=== PATIENT | female | born 1945 | race Caucasian/White ===

== ENCOUNTER 2020-07-28 14:17 | Outpatient (REF) | payer MEDICARE, SELFPAY | END 2020-07-28 14:18 | disposition home or self-care (01) | LOC: HO.LAB 14:17 | PROVIDERS: PCP Internal Medicine; Visit Provider Internal Medicine Cardiovascular Disease | DX: I47.1 Supraventricular tachycardia (principal); I10 Essential (primary) hypertension; I49.1 Atrial premature depolarization; Z79.899 Other long term (current) drug therapy; Z82.49 Family history of ischemic heart disease and other diseases of the circulatory system | CPT/HCPCS: 93005; 99202 ==

== ENCOUNTER 2020-08-06 09:54 | Outpatient (REF) | payer MEDICARE, SELFPAY ==
[2020-08-07 11:58] LABS: CRP High Sensitivity 0.4 mg/L
== END 2020-08-06 09:55 | disposition home or self-care (01) ==
LOC: HO.WFDLDS 09:54
PROVIDERS: Visit Provider Internal Medicine Cardiovascular Disease
DX: I10 Essential (primary) hypertension (principal)
CPT/HCPCS: 36415; 86141

== ENCOUNTER 2021-01-01 11:54 | Outpatient (REF) | payer MEDICARE, SELFPAY ==
[2021-01-01 14:40] LABS: Anion Gap 12 (12-20); Blood Urea Nitrogen 13 mg/dL (9-16); Calcium 9.6 mg/dL (8.4-10.2); Carbon Dioxide 26 mmol/L (22-29); Chloride 107 mmol/L (96-108); Estimated Glomerular Filt Rate > 60; Glucose Random 87 mg/dL (60-115); Potassium 4.5 mmol/L (3.3-5.1); Sodium 140 mmol/L (135-145)
== END 2021-01-01 11:55 | disposition home or self-care (01) ==
LOC: HO.WFDLDS 11:54
PROVIDERS: PCP Internal Medicine; Visit Provider Internal Medicine
DX: I10 Essential (primary) hypertension (principal); T61.91XA Toxic effect of unspecified seafood, accidental (unintentional), initial encounter
CPT/HCPCS: 36415; 80048; 86003

== ENCOUNTER 2021-01-07 07:44 | Outpatient (REF) | payer MEDICARE, SELFPAY ==
--- NOTE | ~2021-01-07 | CT_ITS ---
EXAMINATION: CT ANGIOGRAM ABDOMEN CLINICAL INFORMATION: Splenic artery aneurysm. COMPARISON: None TECHNIQUE: Multiple axial images were obtained through the abdomen following the administration of 80 mL Omnipaque 350 intravenous contrast. Images were evaluated on independent dedicated 3-D workstation and 3-D images were reconstructed with concurrent radiologist supervision and subsequently interpreted. This CT examination was performed using dose optimization techniques as appropriate, variously including the following: *Automated exposure control *Adjustment of mA and/or kV according to patient size (this includes techniques or standardized protocols for targeted exams where dose is matched to indication/reason for exam; i.e. extremities or head) *Use of iterative reconstruction technique DLP: 260 mGy-cm VASCULAR: Abdominal aorta: Normal caliber widely patent. Iliac arteries: The common iliac arteries are normal in caliber and widely patent. The visualized portion of the internal and external iliac arteries are normal in caliber and widely patent. Mesenteric arteries: The celiac artery is widely patent and trifurcates normally. The splenic artery is tortuous but normal in caliber and widely patent. Adjacent to the splenic hilum is a 1.4 cm rim calcified splenic artery aneurysm (series 5 image 15 and series 6 image 42). The superior mesenteric and inferior mesenteric arteries are patent and branch appropriately. Renal arteries: The bilateral renal arteries are widely patent. NONVASCULAR: Professor Of Music: Dextroscoliosis of the thoracic spine as well as levoscoliosis of the lumbar spine. Lung Bases: Minimal bibasilar atelectasis. There is a small right-sided Bochdalek hernia which transmits fat. Liver, Gallbladder, Biliary Tree: Normal-sized liver. No biliary ductal dilatation. Along the peripheral right lobe, segment 6 posteriorly, is a punctate coarse calcification (series 8 image 261). The gallbladder is unremarkable with no evidence of radiopaque gallstones, gallbladder wall thickening, or pericholecystic inflammatory changes. Pancreas: Unremarkable. Spleen: Normal in size. There is a 5 mm punctate calcification within the spleen consistent with prior granulomatous disease. Adrenal Glands: Unremarkable. Kidneys and Ureters: The kidneys are normal in size, shape, and attenuation. No hydronephrosis or hydroureter or calculi seen. No perinephric stranding. Gastrointestinal Tract: The small and large bowel are unremarkable. The appendix is unremarkable. Abdominal Wall: Tiny fat-containing umbilical hernia. Dense bilateral breast tissue. Lymph Nodes: Normal. Osseous Structures: Unremarkable. CT/CT angio abdomen IMPRESSION: Adjacent to the splenic hilum is a 1.4 cm peripherally calcified splenic artery aneurysm. While spontaneous rupture of small, calcified aneurysms is rare, follow-up CT could be performed in one year for surveillance. If the aneurysm is stable at that time, follow-up interval can be extended.
[2021-01-07] MEDS: iohexoL 350 MG/ML 100 ML INFUS..BTL IV (09:52)
== END 2021-01-07 07:45 | disposition home or self-care (01) ==
LOC: HO.CT 07:44
PROVIDERS: Visit Provider Internal Medicine
DX: I72.8 Aneurysm of other specified arteries (principal)
CPT/HCPCS: 74175; Q9967

== ENCOUNTER 2021-07-02 09:41 | Outpatient (REF) | payer MEDICARE, SELFPAY ==
[2021-07-02 11:25] LABS: Cholesterol 177 mg/dL; HDL Cholesterol 71 mg/dL; LDL Cholesterol Calculated 91 mg/dl; Potassium 4.4 mmol/L (3.3-5.1); Triglycerides 76 mg/dL
== END 2021-07-02 09:42 | disposition home or self-care (01) ==
LOC: HO.WFDLDS 09:41
PROVIDERS: Visit Provider Internal Medicine Cardiovascular Disease
DX: E78.5 Hyperlipidemia, unspecified (principal); I10 Essential (primary) hypertension; I47.1 Supraventricular tachycardia
CPT/HCPCS: 36415; 80061; 84132

== ENCOUNTER → 2021-07-07 12:46 | Outpatient (BNVA) | payer MEDICARE, SELFPAY | PROVIDERS: PCP Internal Medicine; Visit Provider Internal Medicine Cardiovascular Disease | DX: I47.1 Supraventricular tachycardia (principal); I25.10 Atherosclerotic heart disease of native coronary artery without angina pectoris; Z79.82 Long term (current) use of aspirin | CPT/HCPCS: 93005; 99212 ==

== ENCOUNTER 2021-10-22 09:24 | Outpatient (REF) | payer MEDICARE, SELFPAY ==
[2021-10-22 11:26] LABS: MANUAL DIFF FLAG NO
[2021-10-22 11:36] LABS: Basophils Percent Auto 0.6 % (0-2); Eosinophils Absolute Auto 0.2 X10*3/uL (0.0-0.4); Eosinophils Percent Auto 3.3 % (0-4); Hematocrit 41.5 % (37.0-47.0); Imm Gran Abs Auto 0.02 X10*3/uL (0.00-0.03); Imm Gran Pct Auto 0.4 % (0.0-0.4); Lymphocytes Absolute Auto 1.4 X10*3/uL (1.2-4.9); Lymphocytes Percent Auto 27.7 % (20-40); Mean Corpuscular HGB Conc 31.3 g/dl (31.0-35.0); Mean Corpuscular Hemoglobin 28.8 pg (27.0-33.0); Mean Corpuscular Volume 91.8 fL (80.0-98.0); Mean Platelet Volume 11.3 fL (9.4-12.3); Monocytes Absolute Auto 0.5 X10*3/uL (0.1-1.2); Monocytes Percent Auto 10.6 % (2-11); Neutrophils Absolute Auto 2.9 x10*3/uL (2.0-8.3); Neutrophils Percent Auto 57.4 % (45-73); Platelet Count 241 X10*3/uL (160-400); Red Blood Count 4.52 X10*6/uL (4.20-5.50); Red Cell Distribution Width 13.2 % (11.0-16.0); White Blood Count 5.1 X10*3/uL (4.8-10.8)
[2021-10-22 12:11] LABS: Cholesterol 173 mg/dL; HDL Cholesterol 75 mg/dL; LDL Cholesterol Calculated 84 mg/dl; Triglycerides 70 mg/dL
[2021-10-22 12:13] LABS: Alanine Aminotransferase 33 U/L (0-31); Alkaline Phosphatase 83 U/L (39-117); Anion Gap 9 (12-20); Aspartate Amino Transferase 36 U/L (5-31); Bilirubin Total 0.9 mg/dL (0.0-1.0); Blood Urea Nitrogen 13 mg/dL (9-16); Calcium 9.6 mg/dL (8.4-10.2); Carbon Dioxide 29 mmol/L (22-29); Chloride 105 mmol/L (96-108); Estimated Glomerular Filt Rate > 60; Glucose Fasting 88 mg/dL (60-99); Potassium 4.4 mmol/L (3.3-5.1); Sodium 139 mmol/L (135-145); Total Protein 6.7 g/dL (6.5-8.0)
[2021-10-22 12:16] LABS: TSH reflex Free T4 2.01 uIU/mL (0.32-4.0)
== END 2021-10-22 09:25 | disposition home or self-care (01) ==
LOC: HO.WFDLDS 09:24
PROVIDERS: Internal Medicine; Visit Provider Internal Medicine Cardiovascular Disease
DX: E04.2 Nontoxic multinodular goiter (principal); I10 Essential (primary) hypertension; E78.5 Hyperlipidemia, unspecified
CPT/HCPCS: 36415; 80053; 80061; 84443; 85025

== ENCOUNTER 2022-03-19 09:03 | Outpatient (REF) | payer MEDICARE, SELFPAY ==
[2022-03-19 11:51] LABS: Cholesterol 149 mg/dL; HDL Cholesterol 69 mg/dL; LDL Cholesterol Calculated 67 mg/dl; Triglycerides 66 mg/dL
== END 2022-03-19 09:04 | disposition home or self-care (01) ==
LOC: HO.WFDLDS 09:03
PROVIDERS: PCP Internal Medicine; Visit Provider Internal Medicine Cardiovascular Disease
DX: I25.10 Atherosclerotic heart disease of native coronary artery without angina pectoris (principal)
CPT/HCPCS: 36415; 80061

== ENCOUNTER 2022-05-14 08:23 | Outpatient (REF) | payer MEDICARE, SELFPAY ==
[2022-05-14 11:28] LABS: MANUAL DIFF FLAG NO
[2022-05-14 11:37] LABS: Appearance Urine Clear; Color Urine Yellow; Glucose Urine UA Negative (Negative); Leukocyte Esterase Urine Moderate (2+) (Negative); Nitrite Urine Negative (Negative); PH 7.5 (5.0-9.0); Specific Gravity - Urine 1.015 (1.005-1.025); UMIC TRIGGER UA YES; Urine Blood Negative (Negative); Urine Ketones Negative (Negative); Urine Protein Negative (Neg-Trace)
[2022-05-14 11:46] LABS: Bacteria Urine None Seen (None Seen); Basophils Absolute Auto 0.1 X10*3/uL (0.0-0.2); Basophils Percent Auto 1.3 % (0-2); Eosinophils Absolute Auto 0.2 X10*3/uL (0.0-0.4); Eosinophils Percent Auto 3.4 % (0-4); Hematocrit 40.2 % (37.0-47.0); Hemoglobin 12.9 g/dl (12.0-16.0); Hyaline Casts Urine 0-2 /LPF (0-2); Imm Gran Abs Auto 0.01 X10*3/uL (0.00-0.03); Imm Gran Pct Auto 0.2 % (0.0-0.4); Lymphocytes Absolute Auto 1.5 X10*3/uL (1.2-4.9); Lymphocytes Percent Auto 30.5 % (20-40); Mean Corpuscular HGB Conc 32.1 g/dl (31.0-35.0); Mean Corpuscular Hemoglobin 29.1 pg (27.0-33.0); Mean Corpuscular Volume 90.7 fL (80.0-98.0); Mean Platelet Volume 11.1 fL (9.4-12.3); Monocytes Absolute Auto 0.5 X10*3/uL (0.1-1.2); Monocytes Percent Auto 10.3 % (2-11); Neutrophils Absolute Auto 2.6 x10*3/uL (2.0-8.3); Neutrophils Percent Auto 54.3 % (45-73); Platelet Count 223 X10*3/uL (160-400); RBC Urine 0-2 /HPF (0-2); Red Blood Count 4.43 X10*6/uL (4.20-5.50); Red Cell Distribution Width 12.7 % (11.0-16.0); White Blood Count 4.8 X10*3/uL (4.8-10.8)
[2022-05-14 12:13] LABS: Alanine Aminotransferase 25 U/L (0-31); Albumin Level 4.1 g/dL (3.5-5.0); Alkaline Phosphatase 85 U/L (39-117); Anion Gap 17 (12-20); Aspartate Amino Transferase 26 U/L (5-31); Bilirubin Total 0.7 mg/dL (0.0-1.0); Blood Urea Nitrogen 20 mg/dL (9-16); Calcium 9.5 mg/dL (8.4-10.2); Carbon Dioxide 25 mmol/L (22-29); Chloride 104 mmol/L (96-108); Cholesterol 148 mg/dL; Estimated Glomerular Filt Rate > 60; Glucose Fasting 84 mg/dL (60-99); HDL Cholesterol 70 mg/dL; LDL Cholesterol Calculated 67 mg/dl; Potassium 4.5 mmol/L (3.3-5.1); Sodium 141 mmol/L (135-145); Total Protein 6.8 g/dL (6.5-8.0); Triglycerides 58 mg/dL
[2022-05-14 12:21] LABS: TSH reflex Free T4 1.99 uIU/mL (0.32-4.0)
[2022-05-14 13:31] LABS: Vitamin D 25-OH Total 42.6 ng/mL (>30)
== END 2022-05-14 08:24 | disposition home or self-care (01) ==
LOC: HO.WFDLDS 08:23
PROVIDERS: Visit Provider Internal Medicine
DX: E78.00 Pure hypercholesterolemia, unspecified (principal); E04.2 Nontoxic multinodular goiter; E55.9 Vitamin D deficiency, unspecified; I10 Essential (primary) hypertension
CPT/HCPCS: 36415; 80053; 80061; 81001; 82306; 84443; 85025

== ENCOUNTER 2022-05-26 13:32 | Outpatient (REF) | payer MEDICARE, SELFPAY ==
[2022-05-26 14:00] LABS: Appearance Urine Clear; Color Urine Yellow; Glucose Urine UA Negative (Negative); Leukocyte Esterase Urine Negative (Negative); Nitrite Urine Negative (Negative); PH 7.5 (5.0-9.0); Specific Gravity - Urine 1.015 (1.005-1.025); Urine Blood Negative (Negative); Urine Ketones Negative (Negative); Urine Protein Negative (Neg-Trace)
== END 2022-05-26 13:33 | disposition home or self-care (01) ==
LOC: HO.LNP 13:32
PROVIDERS: Visit Provider Internal Medicine
DX: R82.81 Pyuria (principal)
CPT/HCPCS: 81003; 87086

== ENCOUNTER → 2022-06-21 08:26 | Outpatient (REF) | payer MEDICARE, SELFPAY ==
--- NOTE | ~2022-06-21 | NM_ITS ---
Lexiscan Myocardial perfusion study Indication: Coronary artery disease, assess for ischemia Technique: The patient was brought in for a Lexiscan perfusion study on 06/21/2022 and was injected 0.4 mg of Lexiscan intravenously. Within a minute of this injection 25 mCi of sestamibi was given intravenously. Images were obtained using the SPECT gamma camera interlaced with the gating device. Images were obtained in supine position. Resting perfusion study was performed on 06/22/2022. Patient was administered 25 mCi of sestamibi intravenously at rest. Images were then obtained in supine position. Images were processed with the software and compared side to side in short axis, horizontal long axis and vertical long axis views. Total DLP 92mGy-cm. Findings: Raw acquisition reviewed. The stress perfusion study showed no significant perfusion abnormality. Both uncorrected as well as CT attenuation corrected images were reviewed. The gated study shows normal LV systolic function with calculated LVEF of 66%. LV cavity is normal in size. The gated study shows normal wall thickening and contraction of segments. Resting study shows no significant perfusion abnormality. Gating at rest reveals normal wall motion with ejection fraction at 65%. The findings are consistent with no reversible or fixed perfusion abnormality. NM/NM emiliano perf SPECT rest & str Impression: 1. Myocardial perfusion imaging study shows normal myocardial perfusion. 2. Gated LVEF is 66% during stress and 65% during rest. 3. Transient ischemic dilatation not present. EKG component of the test reported separately.
--- NOTE | 2022-06-21 08:31 | CA_ITS ---
Acquisition Time: 2022-06-21 08:45:58 Total Exercise Time: 00:02:00 Test Indications: PREOP Medications: SEE CHART Protocol: LEXISCAN Max HR: 115 BPM 79% of Pred: 144 BPM Max BP: 162/072 mmHG Max Work Load: 1.0 METS Pharmacological stress test with Lexiscan injection, while sitting and kicking her legs, with report of sob, no chest discomfort, with isolated PACs, with normotensive response to injection, with nondiagnostic EKG for ischemia. In recovery she was treated with Aminophylline 75mg IVP to reverse Lexiscan. Nuclear images pending.Test reviewed with Dr Walsh. Referred By: Viktor Messina Overread By: DAMON JOY
== END ==
LOC: HO.CARD 08:26
PROVIDERS: Visit Provider Internal Medicine Cardiovascular Disease
DX: Z01.811 Encounter for preprocedural respiratory examination (principal); I25.10 Atherosclerotic heart disease of native coronary artery without angina pectoris; I47.1 Supraventricular tachycardia
CPT/HCPCS: 78452; 93017; A9500; J0280; J2785

== ENCOUNTER → 2022-07-13 12:16 | Outpatient (BNVA) | payer MEDICARE, SELFPAY | PROVIDERS: Referring Provider Internal Medicine; Visit Provider Internal Medicine Cardiovascular Disease | DX: I47.1 Supraventricular tachycardia (principal); I25.10 Atherosclerotic heart disease of native coronary artery without angina pectoris; Z79.899 Other long term (current) drug therapy | CPT/HCPCS: 93005; 99212 ==

== ENCOUNTER 2023-01-13 13:51 | Outpatient (AMB) | payer MEDICARE, SELFPAY ==
--- NOTE | 2023-01-13 14:07 | MHC.OFFVIS ---
Intake Vital Signs 01/13/23 14:08 Height 5 ft 3 in Weight 165 lb 5.547 oz BMI 29.3 BP 120/80 Blood Pressure Location Lt brachial Position Sitting Pulse 74 Intake Visit Reasons: c/o increased heart rate Intake Note: Follow-up increased heart rate Electrocardiographic Technician Required: No Allergies No Known Allergies Allergy (Verified 07/07/21 12:55) Medication List - Last Reconciled 01/13/23 by Viktor Messina MD acetaminophen (Tylenol) 325 mg PO QID PRN aspirin (Adult Aspirin Regimen) 81 mg PO DAILY ezetimibe (Zetia) 10 mg PO DAILY fluticasone propionate 50 mcg/actuation 1 spray intranasal DAILY PRN levothyroxine 75 mcg PO DAILY lisinopril 20 mg PO DAILY metoprolol succinate ER 25 mg PO DAILY rosuvastatin 20 mg PO DAILY HPI HPI Comments History of Present Illness Details Ritika Guy comes for urgent visit. She is having some increasing symptoms of palpitations. She has had multiple recordings on her EKG by device. There recording suggestive atrial fibrillation, however reviewing her EKGs disappear to be sinus rhythm with PACs. She also concern about heart rate in the 40s at nighttime when she is sleeping. She has no lightheadedness, syncope. No prolonged palpitations. [facility] Medical History CAD (coronary artery disease) HTN (hypertension) Hyperlipemia PAC (premature atrial contraction) SVT (supraventricular tachycardia) Surgical History No pertinent past surgical history Family History Father CVD (cardiovascular disease) Mother No problems noted. Social History Alcohol intake: current Alcohol intake frequency: 0-2 drinks per day Alcohol type: wine Patient Tobacco Use Status: Never used Tobacco Review of Systems Const Denies chills, Denies fatigue, Denies fever(s), Denies frequent falls, Denies weakness, Denies weight gain and Denies weight loss ENT Denies dizziness Card Denies chest pain, Denies leg edema, Denies lightheadedness, Denies palpitations, Denies dyspnea, Denies dyspnea on exertion, Denies orthopnea and Denies other (loss of consciousness) Resp Denies cough, Denies dyspnea and Denies dyspnea on exertion GI Denies hematochezia and Denies change in stool character Musc Denies abnormal gait, Denies muscle weakness, Denies numbness, Denies radiating pain into limb and Denies tingling Neuro Denies abnormal gait, Denies dizziness, Denies frequent falls, Denies numbness, Denies tingling and Denies weakness Endo Denies fatigue and Denies palpitations Physical Exam Vital Signs: Last Vital Signs Pulse 74 01/13/23 14:08 BP 120/80 01/13/23 14:08 BMI result Body Mass Index 29.3 Const General: cooperative, comfortable, no acute distress, alert, awake and well groomed Nutritional Appearance: average body habitus Orientation/consciousness: patient oriented x3 Limitations: no limitations HEENT Head: Yes normocephalic and Yes atraumatic Neck Neck: Yes trachea midline, Yes supple and Yes no JVD Chest Chest palpation & inspection: normal inspection of the chest Resp Effort & Inspection: normal respiratory effort Auscultation: clear to auscultation bilaterally Cardio Jugular venous distension: no JVD Palpation: normal PMI Rate: regular rate Rhythm: regular rhythm Heart sounds: S1 normal heart sound present and S2 normal heart sound present Bruits: no carotid bruits GI Auscultation: normal bowel sounds Skin General skin exam: no rashes or lesions noted Neuro General: patient oriented x3 and no focal motor deficits Extrem General: Yes edema (Left lower extremity) Psych Appearance: grossly normal Assessment & Plan Assessment & Plan (1) PAC (premature atrial contraction): Code(s): I49.1 - Atrial premature depolarization Plan: Cardiac arrhythmias predominantly PACs. Symptomatic. Continue metoprolol therapy I would not change of therapy. She has had no prolonged episode of SVT or no episodes of atrial fibrillation. Continue monitor by smart phone based EKG device. Avoidance of stimulants was discussed. Stress mitigation strategies was discussed. (2) CAD (coronary artery disease): Code(s): I25.10 - Atherosclerotic heart disease of [place] coronary artery without angina pectoris Plan: CAD, nonobstructive. Continue medical therapy. Continue dual therapy with ezetimibe in statins. Target goal LDL closer to 60 mg/dL. Continue low-dose aspirin therapy. Blood pressure is currently well optimized. Encouraged to continue to participate in physical activity as tolerated. Will follow up in the clinic in 1 year's time, sooner p.r.n.. Thank you for allowing me to partake in her care Orders: Orders RT home sleep study 01/13/23 G47.10 - Hypersomnia, unspecified, I49.1 - Atrial premature depolarization Referrals Nutrition/Dietitian Referral I25.10 - Atherosclerotic heart disease of [place] coronary artery without angina pectoris Coding Level of Care Code Est Pt Level 3 (76414) Diagnoses PAC (premature atrial contraction) I49.1 CAD (coronary artery disease) I25.10
[2023-01-13 14:08] VITALS: BP 120/80; PULSE 74; BMI 29.3
== END 2023-01-13 14:54 | disposition home or self-care (01) ==
PROVIDERS: Visit Provider Internal Medicine Cardiovascular Disease
DX: I49.1 Atrial premature depolarization (principal); I25.10 Atherosclerotic heart disease of native coronary artery without angina pectoris
CPT/HCPCS: 99213

== ENCOUNTER → 2023-01-13 13:51 | Outpatient (BNVA) | payer MEDICARE, SELFPAY | PROVIDERS: Visit Provider Internal Medicine Cardiovascular Disease | DX: I49.1 Atrial premature depolarization (principal); I25.10 Atherosclerotic heart disease of native coronary artery without angina pectoris; Z79.82 Long term (current) use of aspirin; Z79.899 Other long term (current) drug therapy | CPT/HCPCS: 99212 ==

== ENCOUNTER 2023-03-14 12:22 | Outpatient (AMB) | payer MEDICARE, SELFPAY ==
[2023-03-14 12:59] VITALS: BMI 29.1
--- NOTE | 2023-03-14 12:59 | MHC.AMNUTRGE ---
Intake VS Expanded 03/14/23 12:59 Height 5 ft 3 in Weight 164 lb 7.437 oz BMI 29.1 Intake Visit Reasons: Atherosclerotic heart disease Allergies No Known Allergies Allergy (Verified 07/07/21 12:55) HPI Nutrition Presentation Details Pt presents for MNT for Atherosclerotic heart disease of [place] coronary artery . P twas referred by head stock operator. Dr. Messina N. Pt reports typically having 3 meals/d , meals may consist of L: cereal (varies/kashi or muesli type cereal with 1-2 % milk D: chicken pop pie with rice, glass of wine , or fish fillet 1/2 of sweet potato, broccoli , [place] butter, water or milk 1% snack : ice cream bar snacks on : cashews , walnuts fruits 0-1/d fish : 2 x/wk dairy> 3 serving/d non starchy ve: 0-2serving/d starches > 16 serving/d physical activity: currently sedentary ETOH: glass/day smoking: denies ZUP-Extomkz-Ad.Jeor Equation Height 5 ft 3 in Weight 164 lb Resting Metabolic Rate 1203.43 Calculated Activity Level Sedentary Calories Needed to Maintain Weight 1444.12 Diagnosis Nutrition problem #1 excessive energy intake As related to (etiology) #1 diagnosis As evidenced by (sign/symptom) #1 food recall Monitoring/Goals Nutrition problem monitoring total energy intake (review mufa/pufa/sat'd fats ) Most Recent Diabetes Results: Cholesterol 148 mg/dL 05/14/22 HDL Cholesterol 70 mg/dL 05/14/22 Triglycerides 58 mg/dL 05/14/22 Creatinine 0.85 mg/dL (0.5-1.4) 05/14/22 Blood Urea Nitrogen 20 mg/dL (9-16) H 05/14/22 Sodium 141 mmol/L (135-145) 05/14/22 Potassium 4.5 mmol/L (3.3-5.1) 05/14/22 Chloride 104 mmol/L (96-108) 05/14/22 Carbon Dioxide 25 mmol/L (22-29) 05/14/22 Calcium 9.5 mg/dL (8.4-10.2) 05/14/22 AST 26 U/L (5-31) 05/14/22 ALT 25 U/L (0-31) 05/14/22 Total Protein 6.8 g/dL (6.5-8.0) 05/14/22 Albumin 4.1 g/dL (3.5-5.0) 05/14/22 [facility] Medical History CAD (coronary artery disease) HTN (hypertension) Hyperlipemia PAC (premature atrial contraction) SVT (supraventricular tachycardia) Surgical History No pertinent past surgical history Family History Father CVD (cardiovascular disease) Mother No problems noted. Social History Alcohol intake: current Alcohol intake frequency: 0-2 drinks per day Alcohol type: wine Patient Tobacco Use Status: Never used Tobacco Assessment & Plan Assessment & Plan (1) CAD (coronary artery disease): Code(s): I25.10 - Atherosclerotic heart disease of [place] coronary artery without angina pectoris Plan: wt: 74 kg Est kcal needs as per MSJ: 1500 (40% carb, 30% protein/fat) Est fluid needs as per 25-30 ml/d: 1800 Est prot per day as per 1 g/kg bw: 74 Recommend fiber intake : 8-10 g per day and gradually increase to 25-28 g per day for women and 35-38 g for men or as tolerated Recommend sodium intake per day : less than 2000 mg Educated patient on: ( R = reviewed V = verbalizes understanding N/R = needs review N/A = not applicable Food sources of carbohydrate, adequate serving sizes and its role in various health conditions: R V Differences between complex carbohydrates a simple carbohydrates, role of fiber in diet: R V Differences between types of fats and role in diet (mono on saturated fat fatty acids, saturated fatty acids, trans fats): R Food sources of sodium in salt and healthy modifications for heart health in kidney health: R Healthy plate method concept: R Physical activity: Benefits a precaution: R Patient Instructions: Reduce on sat'd fats by Reducing on pre fried foods (example breaded foods , pastries) see list of preferred foods lower in sat'd fats Coding Level of Care Code Nutr Indiv Intake (92987) Diagnoses CAD (coronary artery disease) I25.10 Time Spent (min) 30
[2023-03-21 21:20] VITALS: BMI 29.0
== END 2023-03-14 13:30 | disposition home or self-care (01) ==
PROVIDERS: Visit Provider Dietitian, Registered
DX: I25.10 Atherosclerotic heart disease of native coronary artery without angina pectoris (principal)

== ENCOUNTER → 2023-03-14 12:22 | Outpatient (BNVA) | payer MEDICARE, SELFPAY | PROVIDERS: Visit Provider Dietitian, Registered | DX: I25.10 Atherosclerotic heart disease of native coronary artery without angina pectoris (principal); Z71.3 Dietary counseling and surveillance | CPT/HCPCS: 97802 ==

== ENCOUNTER 2023-10-26 14:26 | Outpatient (AMB) | payer MEDICARE, SELFPAY ==
[2023-10-26 14:40] VITALS: BP 116/60; PULSE 74; O2SAT 98; BMI 28.7
--- NOTE | 2023-10-26 14:40 | MHC.OFFVIS ---
Vital Signs 10/26/23 14:40 Height 5 ft 3 in Weight 162 lb BMI 28.7 BP 116/60 Blood Pressure Location Lt brachial Position Sitting Pulse 74 Pulse Source Monitor Pulse Oximetry (%) 98 Oxygen Delivery Method Room Air Intake Visit Reasons: NE ortho/ Clearance 5-1 Intake Note: pt is here for ov with ekg pt feels goods Allergies No Known Allergies Allergy (Verified 10/26/23 14:55) Medication List - Last Reconciled 10/26/23 by Diana Guajardo NP acetaminophen (Tylenol) 325 mg PO QID PRN aspirin (Adult Aspirin Regimen) 81 mg PO DAILY ezetimibe (Zetia) 10 mg PO DAILY levothyroxine 75 mcg PO DAILY lisinopril 20 mg PO DAILY metoprolol succinate ER 25 mg PO DAILY rosuvastatin 20 mg PO DAILY HPI Comments Details: 77-year-old female presents today as she is going for a knee replacement. She reports she has been doing well. Denies any chest pains, shortness of breath, palpitations, dizziness, or syncope. [facility] Medical History (Updated 10/27/23 @ 11:48 by Diana Guajardo NP) CAD (coronary artery disease) Hyperlipemia PAC (premature atrial contraction) SVT (supraventricular tachycardia) HTN (hypertension) Surgical History No pertinent past surgical history Family History Father CVD (cardiovascular disease) Mother No problems noted. Social History Alcohol intake: current Alcohol intake frequency: 0-2 drinks per day Alcohol type: wine Patient Tobacco Use Status: Never used Tobacco Review of Systems Const Denies weakness ENT Denies dizziness Card Denies chest pain, Denies chest pain with activity, Denies syncope, Denies rapid heart rate, Denies pedal edema, Denies edema, Denies leg edema, Denies lightheadedness, Denies palpitations, Denies dyspnea, Denies dyspnea on exertion and Denies orthopnea Resp Denies cough, Denies dyspnea and Denies dyspnea on exertion GI Denies hematochezia and Denies change in stool character Musc Denies abnormal gait, Denies muscle cramps, Denies muscle weakness, Denies numbness, Denies radiating pain into limb and Denies tingling Neuro Denies abnormal gait, Denies dizziness, Denies syncope, Denies numbness, Denies tingling and Denies weakness Endo Denies palpitations Physical Exam Vital Signs: Last Vital Signs Pulse 74 10/26/23 14:40 BP 116/60 10/26/23 14:40 Pulse Ox 98 10/26/23 14:40 Oxygen Delivery Method Room Air 10/26/23 14:40 BMI result Body Mass Index 28.7 Office Procedures EKG Details: EKG today. Sinus Rhythm with 1st Degree AV Block with PACs. Nonspecific ST abnormlaity. Rate 74 bpm. QRS 84ms. QTc 437ms. [id number], Complete Assessment & Plan Assessment & Plan (1) Pre-operative cardiovascular examination: Code(s): Z01.810 - Encounter for preprocedural cardiovascular examination Category: Medical Plan 06/2022 Pharmacological stress test shows normal myocardial perfusion. Limited physical mobility due to hip pain and history of fractured patella. She is able to do stairs and go for walks without anginal symptoms equalling 4 METS or greater. Coding Level of Care Code Est Pt Level 3 (65268) Diagnoses Pre-operative cardiovascular examination Z01.810 CPT Codes EKG - CPT: 73239-[id number], Complete ([id number])
== END 2023-10-26 15:12 | disposition home or self-care (01) ==
PROVIDERS: Visit Provider Nurse Practitioner
DX: I44.0 Atrioventricular block, first degree (principal); I49.1 Atrial premature depolarization; Z01.810 Encounter for preprocedural cardiovascular examination
CPT/HCPCS: 93010; 99213

== ENCOUNTER → 2023-10-26 14:26 | Outpatient (BNVA) | payer MEDICARE, SELFPAY | PROVIDERS: Visit Provider Nurse Practitioner | DX: Z01.810 Encounter for preprocedural cardiovascular examination (principal); I44.0 Atrioventricular block, first degree; R94.31 Abnormal electrocardiogram [ECG] [EKG] | CPT/HCPCS: 93005; 99212 ==

== ENCOUNTER 2024-02-22 08:41 | Outpatient (AMB) | payer MEDICARE, SELFPAY ==
[2024-02-22 08:42] VITALS: BP 130/68; PULSE 69; BMI 28.9
--- NOTE | 2024-02-22 08:42 | A.OFFVIS_ITS ---
Vital Signs 02/22/24 08:42 Height 5 ft 3 in Weight 163 lb 2.273 oz BMI 28.9 BP 130/68 Blood Pressure Location Lt brachial Position Sitting Pulse 69 Pulse Source Monitor Intake Visit Reasons: 1 yr f/up Allergies No Known Allergies Allergy (Verified 10/26/23 14:55) Medication List - Last Reconciled 02/22/24 by Viktor Messina MD acetaminophen (Tylenol) 180 mg PO QID PRN aspirin (Adult Aspirin Regimen) 81 mg PO DAILY ezetimibe (Zetia) 10 mg PO DAILY levothyroxine 75 mcg PO DAILY lisinopril 20 mg PO DAILY metoprolol succinate ER 25 mg PO DAILY rosuvastatin 20 mg PO DAILY HPI Comments Details: Desiree comes for follow-up. She has been doing very well overall. She denies any cardiac symptoms. Denies any symptoms of prolonged palpitation. Occasionally has fluttering in his chest. Denies any exertional chest pain. Takes all her medications. No recent lipid panel was available for my review. She takes all her medications religiously. Blood pressure is generally well optimized. [facility] Medical History CAD (coronary artery disease) Hyperlipemia PAC (premature atrial contraction) SVT (supraventricular tachycardia) HTN (hypertension) Surgical History No pertinent past surgical history Family History Father CVD (cardiovascular disease) Mother No problems noted. Social History Alcohol intake: current Alcohol intake frequency: 0-2 drinks per day Alcohol type: wine Patient Tobacco Use Status: Never used Tobacco Review of Systems Const Denies weakness ENT Denies dizziness Card Denies chest pain, Denies chest pain with activity, Denies syncope, Denies rapid heart rate, Denies pedal edema, Denies edema, Denies leg edema, Denies lightheadedness, Denies palpitations, Denies dyspnea, Denies dyspnea on exertion and Denies orthopnea Resp Denies cough, Denies dyspnea and Denies dyspnea on exertion GI Denies hematochezia and Denies change in stool character Musc Denies abnormal gait, Denies muscle cramps, Denies muscle weakness, Denies numbness, Denies radiating pain into limb and Denies tingling Neuro Denies abnormal gait, Denies dizziness, Denies syncope, Denies numbness, Denies tingling and Denies weakness Endo Denies palpitations Physical Exam Vital Signs: Last Vital Signs Pulse 69 02/22/24 08:42 BP 130/68 02/22/24 08:42 BMI result Body Mass Index 28.9 Const General: cooperative, comfortable, no acute distress, alert, awake and well groomed Nutritional Appearance: average body habitus Orientation/consciousness: patient oriented x3 Limitations: no limitations HEENT Head: Yes normocephalic and Yes atraumatic Neck Neck: Yes trachea midline, Yes supple and Yes no JVD Chest Chest palpation & inspection: normal inspection of the chest Resp Effort & Inspection: normal respiratory effort Auscultation: clear to auscultation bilaterally Cardio Jugular venous distension: no JVD Palpation: normal PMI Rate: regular rate Rhythm: abnormal rhythm with ectopic beats Heart sounds: S1 normal heart sound present and S2 normal heart sound present Bruits: no carotid bruits GI Auscultation: normal bowel sounds Skin General skin exam: no rashes or lesions noted Neuro General: patient oriented x3 and no focal motor deficits Extrem General: Yes edema (Left lower extremity) Psych Appearance: grossly normal Office Procedures EKG Details: EKG shows normal sinus rhythm with frequent PACs in a bigeminal pattern [id number], Complete Assessment & Plan Assessment & Plan (1) CAD (coronary artery disease): Code(s): I25.10 - Atherosclerotic heart disease of [place] coronary artery without angina pectoris Category: Medical Plan: Nonobstructive CAD without any obvious symptoms at current point time. Continue aggressive medical therapy. Continue low-dose aspirin therapy for life. Continue dual statin and ezetimibe therapy. Target goal LDL closer to 60 mg/dL. This was discussed with her. At least annual lipid panel should be checked. Continue aggressive blood pressure control which is currently well optimized. Continue lisinopril and metoprolol therapy. Encouraged to continue to participate in physical activity as tolerated. (2) PAC (premature atrial contraction): Code(s): I49.1 - Atrial premature depolarization Category: Medical Plan: Cardiac arrhythmias with frequent PACs. No significant symptoms including today and bigeminal pattern she had no symptoms of palpitation. She occasionally gets fluttering in her chest which could be related PACs or short bursts of SVT. She is at high risk for development of atrial fibrillation this was discussed with her. She is recommended to continue monitor and if she has prolonged palpitation either seek urgent EKG and/or can perform her own EKGs on her device. Advised to call me with any new symptoms. Continue metoprolol therapy. Avoidance of stimulants was discussed. Will follow up in the clinic in 1 year's time, sooner p.r.n.. Thank you for allowing me to partake in her Coding Level of Care Code Est Pt Level 4 (98969) Diagnoses CAD (coronary artery disease) I25.10 PAC (premature atrial contraction) I49.1 CPT Codes EKG - CPT: 08956-[id number], Complete ([id number])
== END 2024-02-22 09:20 | disposition home or self-care (01) ==
PROVIDERS: Visit Provider Internal Medicine Cardiovascular Disease
DX: I25.10 Atherosclerotic heart disease of native coronary artery without angina pectoris (principal); I49.1 Atrial premature depolarization
CPT/HCPCS: 93010; 99214

== ENCOUNTER → 2024-02-22 08:41 | Outpatient (BNVA) | payer MEDICARE, SELFPAY | PROVIDERS: Visit Provider Internal Medicine Cardiovascular Disease | DX: I25.10 Atherosclerotic heart disease of native coronary artery without angina pectoris (principal); I49.1 Atrial premature depolarization | CPT/HCPCS: 93005; 99212 ==

== ENCOUNTER 2024-03-20 12:37 | Emergency (ER) | payer MEDICARE, SELFPAY ==
--- NOTE | 2024-03-20 12:43 | ECG_ITS ---
Test Reason : CHEST PAIN/A-FIB Blood Pressure : / mmHG Vent. Rate : 150 BPM Atrial Rate : 000 BPM P-R Int : 000 ms QRS Dur : 078 ms QT Int : 304 ms P-R-T Axes : 000 -13 150 degrees QTc Int : 480 ms Atrial fibrillation with rapid ventricular response with premature ventricular or aberrantly conducted complexes Minimal voltage criteria for LVH, may be normal variant ( R in aVL ) Marked ST abnormality, possible inferior subendocardial injury Abnormal ECG No previous ECGs available Referred By: Generic ED Physician Electronically Signed By:NIK VIVAS
[2024-03-20 12:51] VITALS: BP 167/87; PULSE 153; RESP 22; TEMP 36.4; O2SAT 98; BMI 30.1
[2024-03-20 13:02] LABS: MANUAL DIFF FLAG NO
[2024-03-20 13:03] LABS: Basophils Absolute Auto 0.1 X10*3/uL (0.0-0.2); Basophils Percent Auto 0.6 % (0-2); Eosinophils Absolute Auto 0.2 X10*3/uL (0.0-0.4); Eosinophils Percent Auto 2.3 % (0-4); Hematocrit 41.6 % (37.0-47.0); Hemoglobin 13.4 g/dl (12.0-16.0); Imm Gran Abs Auto 0.02 X10*3/uL (0.00-0.03); Imm Gran Pct Auto 0.3 % (0.0-0.4); Lymphocytes Absolute Auto 1.8 X10*3/uL (1.2-4.9); Lymphocytes Percent Auto 23.4 % (20-40); Mean Corpuscular HGB Conc 32.2 g/dl (31.0-35.0); Mean Corpuscular Hemoglobin 28.1 pg (27.0-33.0); Mean Corpuscular Volume 87.2 fL (80.0-98.0); Mean Platelet Volume 10.4 fL (9.4-12.3); Monocytes Absolute Auto 0.7 X10*3/uL (0.1-1.2); Neutrophils Percent Auto 64.4 % (45-73); Platelet Count 239 X10*3/uL (160-400); Red Blood Count 4.77 X10*6/uL (4.20-5.50); Red Cell Distribution Width 13.9 % (11.0-16.0); White Blood Count 7.8 X10*3/uL (4.8-10.8)
--- NOTE | 2024-03-20 13:03 | ECG_ITS ---
Test Reason : AFIB Blood Pressure : / mmHG Vent. Rate : 081 BPM Atrial Rate : 081 BPM P-R Int : 208 ms QRS Dur : 086 ms QT Int : 372 ms P-R-T Axes : 044 -13 071 degrees QTc Int : 432 ms Normal sinus rhythm Normal ECG When compared with ECG of 20-MAR-2024 12:39, Sinus rhythm has replaced Atrial fibrillation Vent. rate has decreased BY 69 BPM Referred By: Ab Valle Electronically Signed By:NIK VIVAS
--- NOTE | 2024-03-20 13:03 | ED.ARRPALP ---
HPI - Arrhythmia/Palpitations General Chief Complaint: Arrhythmia/Palpitations Stated Complaint: Afib Time Seen by Provider: 03/20/24 12:51 Source: patient Mode of arrival: ambulatory Limitations: no limitations History of Present Illness HPI narrative: This is a carri 78 years old male patient presented to the emergency department because of rapid heart rate an EKG was done in triage which showed the AFib with rapid ventricular response. She denies any chest pain shortness of breath she states she was walking she felt palpitation she look at the watch and she was in AFib complaint: rapid heart beat and palpitations Duration: now resolved Severity: moderate Context: occurred during exertion Associated symptoms: denies other symptoms Related Data Home Medications ?Medication ?Instructions ?Recorded ?Confirmed levothyroxine 75 mcg tablet 75 mcg PO DAILY 07/28/20 02/22/24 metoprolol succinate 25 mg 25 mg PO DAILY 07/28/20 02/22/24 tablet,extended release 24 hr lisinopril 20 mg tablet 20 mg PO DAILY 07/07/21 02/22/24 aspirin 81 mg tablet,delayed 81 mg PO DAILY 01/13/23 02/22/24 release (Adult Aspirin Regimen) acetaminophen 325 mg tablet 180 mg PO QID PRN 02/22/24 02/22/24 (Tylenol) Previous Rx's ?Medication ?Instructions ?Recorded ezetimibe 10 mg tablet (Zetia) 10 mg PO DAILY #90 tabs 01/31/24 rosuvastatin 20 mg tablet 20 mg PO DAILY #90 tabs 02/06/24 apixaban 5 mg tablet (Eliquis) 5 mg PO BID #60 tabs 03/20/24 Allergies Allergy/AdvReac Type Severity Reaction Status Date / Time No Known Allergies Allergy Verified 03/20/24 12:53 Review of Systems Constitutional: Constitutional: Reports no additional constitutional complaints ENT: Reports system reviewed and no additional complaints, except as documented Cardiovascular: Cardiovascular: Reports no additional cardiovascular complaints Gastrointestinal: Gastrointestinal: Reports no additional gastrointestinal complaints [facility] Past Medical History Attestation statement: The following information was validated with the patient. [facility] Narrative: Hypertension, CAD, SVT Medical History CAD (coronary artery disease) Hyperlipemia PAC (premature atrial contraction) SVT (supraventricular tachycardia) HTN (hypertension) Surgical History No pertinent past surgical history Family History Family History Father CVD (cardiovascular disease) Mother No problems noted. Social History Social History Alcohol intake: current Alcohol intake frequency: 0-2 drinks per day Alcohol type: wine Patient Tobacco Use Status: Never used Tobacco Advance Directives: No Advance Directives Information Provided: Yes Do you have a plan to hurt others: No Plan Physical Exam Vital Signs: Vital Signs: Last Vital Signs Temp 97.6 F 03/20/24 12:51 Pulse 82 03/20/24 13:08 Resp 22 H 03/20/24 12:51 BP 167/87 H 03/20/24 13:08 Pulse Ox 98 03/20/24 12:51 O2 Del Method Room Air 03/20/24 12:51 BMI result Body Mass Index 30.1 She looks well she is not toxic-appearing Const: General: cooperative Nutritional Appearance: well nourished Orientation/consciousness: patient oriented x3 Limitations: no limitations HEENT: Head: Yes normal to inspection General nose exam: Normal external nose present Face and sinus: Yes normal facial exam Mouth: Normal oral and palatal mucosa present Neck: Neck: Yes normal visual inspection Chest: Chest palpation & inspection: normal inspection of the chest Resp: Effort & Inspection: normal respiratory effort Auscultation: clear to auscultation bilaterally Cardio: Jugular venous distension: no JVD Rate: tachycardic Rhythm: abnormal rhythm GI: Inspection: Yes normal to inspection Auscultation: normal bowel sounds Skin: General skin exam: no rashes or lesions noted Lesions: no lesions Rashes: no rashes Neuro: General: patient oriented x3 Course Reevaluation(s) Reevaluation #1: Patient is now in sinus rhythm Time: 13:06 Reevaluation #2: The case was reviewed with the patient office services associate DR Messina recommendation is to start Eliquis 5 mg twice a day, increase the Lopressor to 50 mg daily. Discussed with patient and daughter the very comfortable with the plan of care Dr. Messina will set up a follow-up appointment Time: 14:47 Medications Administered Discontinued Medications Generic Name Dose Route Start Last Admin Trade Name Freq PRN Reason Stop Dose Admin Metoprolol Tartrate 50 mg 03/20/24 13:02 03/20/24 13:08 Metoprolol Tartrate 50 Mg Tablet PO 03/20/24 13:03 50 mg ONCE ONE Administration Protocol Medical Decision Making Medical Decision Making [facility] Narrative: Patient presented with palpitation she was in AFib in triage she has now converted in sinus rhythm Differential Diagnosis Differential Diagnoses: The differential diagnosis associated with the presentation includes AFib/SVT Admission/Observation Consideration of admission/observation: Escalation of care including admission/observation considered Consult Healthcare Provider Management of the patient was discussed with: Unemployment Insurance Hearing Officer Sales Representative Printing Dr Messina Lab Data [facility] Lab Attestation statement: I reviewed the patient's lab results. 03/20/24 12:56 03/20/24 12:56 Labs: Lab Results 03/20/24 Range/Units 12:56 WBC 7.8 (4.8-10.8) X10*3/uL RBC 4.77 (4.20-5.50) X10*6/uL Hgb 13.4 (12.0-16.0) g/dl Hct 41.6 (37.0-47.0) % MCV 87.2 (80.0-98.0) fL MCH 28.1 (27.0-33.0) pg MCHC 32.2 (31.0-35.0) g/dl RDW 13.9 (11.0-16.0) % Plt Count 239 (160-400) X10*3/uL MPV 10.4 (9.4-12.3) fL Immature Gran % (Auto) 0.3 (0.0-0.4) % Neut % (Auto) 64.4 (45-73) % Lymph % (Auto) 23.4 (20-40) % [place] % (Auto) 9.0 (2-11) % Eos % (Auto) 2.3 (0-4) % Baso % (Auto) 0.6 (0-2) % Lymph # (Auto) 1.8 (1.2-4.9) X10*3/uL [place] # (Auto) 0.7 (0.1-1.2) X10*3/uL Eos # (Auto) 0.2 (0.0-0.4) X10*3/uL Baso # (Auto) 0.1 (0.0-0.2) X10*3/uL Abs Immat Gran (auto) 0.02 (0.00-0.03) X10*3/uL Absolute Neuts (auto) 5.0 (2.0-8.3) x10*3/uL Absolute Nucleated RBC 0.000 (0.0-0.012) X10*3/uL Nucleated RBC % (auto) 0.0 (0.0-0.2) /100WBC PT 10.6 L (11.1-13.3) SEC INR 0.9 (0.9-1.1) APTT 31.3 (26.0-36.8) SEC Sodium 143 (135-145) mmol/L Potassium 4.1 (3.3-5.1) mmol/L Chloride 107 (96-108) mmol/L Carbon Dioxide 28 (22-29) mmol/L Anion Gap 12 (12-20) BUN 22 H (9-16) mg/dL Creatinine 0.81 (0.5-1.4) mg/dL Estim Creat Clear Calc 54.1 Estimated GFR > 60 Random Glucose 108 (60-115) mg/dL Calcium 10.0 (8.4-10.2) mg/dL Magnesium 2.2 (1.6-2.6) mg/dL Total Bilirubin 0.6 (0.0-1.0) mg/dL Direct Bilirubin 0.2 (0.0-0.5) mg/dL AST 24 (5-31) U/L ALT 16 (0-31) U/L Alkaline Phosphatase 97 (39-117) U/L Troponin I High Sens < 2.7 (<3.5-17.0) ng/L B-Natriuretic Peptide 116 H (<100) pg/mL Total Protein 7.6 (6.5-8.0) g/dL Albumin 4.3 (3.5-5.0) g/dL TSH 1.52 (0.32-4.0) uIU/mL Independent Interpretation I performed an independent interpretation of an: EKG Interpretation: I reviewed the electrocardiogram 1. As rapid AFib I reviewed the EKG 2. As a sinus rhythm Independent Historian Clinical information obtained from an independent historian. History obtained from or confirmed by: Other (daughter) External Record Review External record reviewed: Office record Chronic Conditions Patient?s care impacted by: Hypertension Critical Care Time Critical Care Time Critical Care Time: Yes Total Critical Care Time: 60 Attestation: mindy lynne, speaking with office services associate speaking with daughter taking care of the patient Discharge Plan Discharge Clinical Impression: Paroxysmal atrial fibrillation Patient Disposition: Home, Self-Care Instructions: A-fib (Atrial Fibrillation) (DC) Additional Instructions: As we discussed start Eliquis 5 mg twice a day increase the Toprol (metoprolol) to 50 mg daily and follow-up with cardiology. we sent prescription for eliquis to [facility] Prescriptions: New Eliquis 5 mg tablet 5 mg PO BID Qty: 60 0RF No Action ezetimibe [Zetia] 10 mg tablet 10 mg PO DAILY Qty: 90 3RF rosuvastatin 20 mg tablet 20 mg PO DAILY Qty: 90 3RF metoprolol succinate 25 mg tablet extended release 24 hr 25 mg PO DAILY levothyroxine 75 mcg tablet 75 mcg PO DAILY lisinopril 20 mg tablet 20 mg PO DAILY acetaminophen [Tylenol] 325 mg tablet 180 mg PO QID PRN aspirin [Adult Aspirin Regimen] 81 mg tablet,delayed release (DR/EC) 81 mg PO DAILY Referrals: Viktor Messina MD [Physician] - 3 days Print Language: Wolof
[2024-03-20 13:08] VITALS: BP 167/87; PULSE 82
[2024-03-20 13:08] LABS: INTERNATIONAL NORM RATIO 0.9 (0.9-1.1); Prothrombin Time 10.6 SEC (11.1-13.3)
[2024-03-20] MEDS: Metoprolol Tartrate 50 MG TABLET PO (13:08)
[2024-03-20 13:10] LABS: Partial Thromboplastin Time 31.3 SEC (26.0-36.8)
[2024-03-20 13:29] LABS: B Type Natriuretic Peptide 116 pg/mL (<100)
[2024-03-20 13:33] LABS: Alanine Aminotransferase 16 U/L (0-31); Albumin Level 4.3 g/dL (3.5-5.0); Alkaline Phosphatase 97 U/L (39-117); Anion Gap 12 (12-20); Aspartate Amino Transferase 24 U/L (5-31); Bilirubin Direct 0.2 mg/dL (0.0-0.5); Bilirubin Total 0.6 mg/dL (0.0-1.0); Blood Urea Nitrogen 22 mg/dL (9-16); Carbon Dioxide 28 mmol/L (22-29); Chloride 107 mmol/L (96-108); Creatinine Clr Calc Pharmacy 54.1; Estimated Glomerular Filt Rate > 60; Glucose Random 108 mg/dL (60-115); Magnesium 2.2 mg/dL (1.6-2.6); Potassium 4.1 mmol/L (3.3-5.1); Sodium 143 mmol/L (135-145); Total Protein 7.6 g/dL (6.5-8.0)
[2024-03-20 13:36] LABS: Troponin-I High Sensitivity < 2.7 ng/L (<3.5-17.0)
[2024-03-20 13:48] LABS: TSH reflex Free T4 1.52 uIU/mL (0.32-4.0)
[2024-03-20 15:10] VITALS: BP 120/53; PULSE 61; RESP 16; TEMP -17.7; TEMP 0; O2SAT 96
== END 2024-03-20 15:11 | disposition home or self-care (01) ==
PROVIDERS: Physician Assistant; Emergency Provider Emergency Medicine; PCP Internal Medicine
DX: I48.0 Paroxysmal atrial fibrillation (principal); I49.8 Other specified cardiac arrhythmias; R00.2 Palpitations; R06.02 Shortness of breath; Z79.899 Other long term (current) drug therapy
CPT/HCPCS: 36415; 80048; 80076; 83735; 83880; 84443; 84484; 85025; 85610; 85730; 93005; 99283

== ENCOUNTER → 2024-03-27 09:28 | Outpatient (REF) | payer MEDICARE, SELFPAY ==
--- NOTE | 2024-03-27 09:30 | HM_ITS ---
Conclusion: 1. Patient was monitored for total period of 7 days 2. Baseline was normal sinus rhythm with average heart of 60 beats per minute 3. No significant pauses noted but frequent sinus bradycardia noted with 46.5% of time heart rate below 60 beats per minute 4. Frequent PACs noted mostly isolated with 17.8% of time PACs are present without any sustained episodes of atrial fibrillation 5. Patient reported no events MTDD
== END ==
LOC: HO.CARD 09:28
PROVIDERS: PCP Internal Medicine; Visit Provider Internal Medicine Cardiovascular Disease
DX: I48.0 Paroxysmal atrial fibrillation (principal)
CPT/HCPCS: 93242

== ENCOUNTER → 2024-03-27 09:30 | Outpatient (BNV) | payer MEDICARE, SELFPAY | PROVIDERS: PCP Internal Medicine; Visit Provider Internal Medicine Cardiovascular Disease | DX: I49.1 Atrial premature depolarization (principal) | CPT/HCPCS: 93244 ==

== ENCOUNTER → 2024-04-09 12:52 | Outpatient (REF) | payer MEDICARE, SELFPAY ==
--- NOTE | 2024-04-09 12:55 | CA_ITS ---
Transthoracic Echocardiogram Patient (Last, First, Middle): Desiree Mueller M Gender: Female Date of : 1945 Age: 78 Procedure Date: 04/09/2024 Procedure Type: Transthoracic Echocardiogram Location: OP Height: 160.02 cm Weight: 73.94 kg BSA: 1.77 m2 Heart Rate: 66 bpm BP: 124 / 64 mmHg Weight Control Engineer: SB Referring MD: Viktor Messina MD Bleacher [employer]: Viktor Messina MD Symptoms: I48.0 - Paroxysmal atrial fibrillation Study Quality: Adequate ECG Rhythm: Sinus with extra beats Conclusions: - 1. Normal LV ejection fraction 65-70% with impaired relaxation filling pattern 2. Normal cardiac valvular Dopplers 3. Normal RV systolic pressure 4. No pericardial effusion Findings Left Ventricle Normal left ventricular size, thickness, and systolic function. The visually estimated ejection fraction is between 65-70%. Spectral Doppler is indicative of an impaired relaxation filling pattern. E/E prime ratio is between 8 and 15 consistent with indeterminate filling pressures. Right Ventricle Normal right ventricular cavity size and systolic function. Atria Both atria are normal in size. There is no evidence of interatrial shunt. Aortic Valve There is mild calcification of the aortic valve. There is no aortic valve stenosis. There is no aortic valve regurgitation. Mitral Valve Normal mitral valve structure and function. There is mild mitral annular calcification. There is trace mitral valve regurgitation. There is no mitral valve stenosis. Pulmonic Valve The pulmonic valve is likely normal. There is trace pulmonic valve regurgitation. Tricuspid Valve Normal tricuspid valve structure. There is mild tricuspid valve regurgitation. The right ventricular systolic pressure is 33 mmHg. Normal right atrial pressure. There is no evidence of pulmonary hypertension. Great Vessels The pulmonary artery was not well visualized. There is no dilatation of the ascending aorta measuring 2.90 cm. Venous The inferior vena cava is normal in size and collapses greater than 50% with inspiration. Pericardium/Pleural There is no evidence of pericardial effusion. Prior Study Comparison No significant change compared to prior study dated: 11/21/2018. Measurements 2D Linear Measurements IVSd: 0.79 0.6-0.9/0.6-1.0 cm LVIDd: 4.94 3.9-5.3/4.2-5.9 cm LVIDd Index: 2.79 2.4-3.2/2.2-3.1 cm/m2 LVIDs: 3.56 2.0-3.6 cm LVPWd: 0.54 0.7-1.1 cm LA Diam: 3.80 2.7-3.8/3.0-4.0 cm LAIDs Index: 2.15 1.5-2.3 cm/m2 LV Mass: 130.12 67-162/88-224 g LV Mass Index: 73.51 43-95/49-115 g/m2 LVOT Diam: 2.00 3.0+(-)1.3 cm 2D Systolic Function EF 4C: 62.30 >55% EF 2C: 75.30 >55% EF BiP: 68.60 >55% Mitral Valve MV Pk E: 0.97 MV PK A: 0.98 MV Decel Time: 287.00 E/A: 1.00 E'Lateral: 5.77 E'Medial: 5.87 E/E' Med: 16.60 E/E' Lat: 16.90 PHT: 84.00 MVA PHT: 2.62 Decel [place]: 3.39 Aortic Valve AoV Pk Van: 1.18 AoV Pk Grad: 6.00 ADDIS: 2.53 LVOT LVOT Pk Van: 0.95 LVOT Mn Van: 0.70 LVOT VTI: 0.23 LVOT Pk Grad: 4.00 LVOT Mn Grad: 2.00 LVOT Diam: 2.00 LVOT Area: 3.14 Diastolic Function MV Pk E: 0.97 MV Pk A: 0.98 E/A: 1.00 E'Medial: 5.87 E/E' Med: 16.60 E' Laterial: 5.77 E/E' Lat: 16.90 Right Ventricle TAPSE (mm): 28.20 TVS' Van: 15.80 Tricuspid Valve TR Pk Van: 2.76 TR Pk Grad: 30.00 RA Press: 3.00 RVSP: 33.00 Great Vessels Aorta Sinus of Valsalva: 2.90 2.0-3.5 cm Ao Asc: 2.90 2.1-3.4 cm Pulmonary Valve PV Pk Van: 1.26 Peak PV Grad: 6.00 MT Pk Van: 1.51 Updated in Other Vendor System with Status of Final Viktor Messina MD electronically signed on 04/09/2024 2:18:32 PM with status of Final
== END ==
LOC: HO.CARD 12:52
PROVIDERS: PCP Internal Medicine; Visit Provider Internal Medicine Cardiovascular Disease
DX: I48.0 Paroxysmal atrial fibrillation (principal)
CPT/HCPCS: 93306

== ENCOUNTER → 2024-04-09 12:55 | Outpatient (BNV) | payer MEDICARE, SELFPAY | PROVIDERS: PCP Internal Medicine; Visit Provider Internal Medicine Cardiovascular Disease | DX: I36.1 Nonrheumatic tricuspid (valve) insufficiency (principal); I48.0 Paroxysmal atrial fibrillation; I35.8 Other nonrheumatic aortic valve disorders; I34.81 Nonrheumatic mitral (valve) annulus calcification | CPT/HCPCS: 93306 ==

== ENCOUNTER 2024-05-15 11:05 | Outpatient (AMB) | payer MEDICARE, SELFPAY ==
[2024-05-15 11:20] VITALS: BP 130/60; PULSE 88; BMI 31.0
--- NOTE | 2024-05-15 11:20 | A.OFFVIS_ITS ---
Vital Signs 05/15/24 11:20 Height 5 ft 2 in Weight 169 lb 12.095 oz BMI 31.0 BP 130/60 Blood Pressure Location Rt brachial Position Sitting Pulse 88 Pulse Source Pulse Oximeter Intake Visit Reasons: 6 week follow-up Intake Note: 6 wk f/up Irrigation Equipment Mechanic Required: No Accompanied by: Self / Same As Patient Allergies No Known Allergies Allergy (Verified 03/20/24 12:53) Medication List - Last Reconciled 05/15/24 by Viktor Messina MD apixaban (Eliquis) 5 mg PO BID ezetimibe (Zetia) 10 mg PO DAILY levothyroxine 75 mcg PO DAILY lisinopril 20 mg PO DAILY metoprolol succinate ER 50 mg PO DAILY rosuvastatin 20 mg PO DAILY HPI Comments Details: Desiree comes for follow-up. March she had presented emergency room sudden onset symptoms of palpitation has been feeling of anxiety and was noted to be in atrial fibrillation rapid ventricular response. She does not clearly understand as to the triggers for it. She denies any significant stress or other stimulant use. She was then seen in the emergency room started on Eliquis upon my recommendation 5 mg b.i.d.. Also on metoprolol was increased to 50 mg daily. Since then she has done well. She denies any symptoms of prolonged palpitation irregular heartbeat or feeling of anxiety. Takes all her medications. No lightheadedness, syncope. No other heart failure symptoms. No exertional chest pain or shortness of breath. [facility] Medical History CAD (coronary artery disease) Hyperlipemia PAC (premature atrial contraction) SVT (supraventricular tachycardia) HTN (hypertension) Surgical History No pertinent past surgical history Family History Father CVD (cardiovascular disease) Mother No problems noted. Social History Alcohol intake: current Alcohol intake frequency: 0-2 drinks per day Alcohol type: wine Patient Tobacco Use Status: Never used Tobacco Review of Systems Const Denies chills, Denies fatigue, Denies fever(s), Denies frequent falls, Denies weakness, Denies weight gain and Denies weight loss ENT Denies dizziness Card Denies chest pain, Denies leg edema, Denies lightheadedness, Denies palpitations, Denies dyspnea and Denies dyspnea on exertion Resp Denies cough, Denies dyspnea and Denies dyspnea on exertion GI Denies hematochezia Musc Denies abnormal gait, Denies muscle weakness, Denies numbness, Denies radiating pain into limb and Denies tingling Neuro Denies abnormal gait, Denies dizziness, Denies frequent falls, Denies numbness, Denies tingling and Denies weakness Endo Denies fatigue and Denies palpitations Physical Exam Vital Signs: Last Vital Signs Pulse 88 05/15/24 11:20 BP 130/60 05/15/24 11:20 BMI result Body Mass Index 31.0 Const General: cooperative, comfortable, no acute distress, alert, awake and well groomed Nutritional Appearance: average body habitus Orientation/consciousness: patient oriented x3 Limitations: no limitations HEENT Head: Yes normocephalic and Yes atraumatic Neck Neck: Yes trachea midline, Yes supple and Yes no JVD Chest Chest palpation & inspection: normal inspection of the chest Resp Effort & Inspection: normal respiratory effort Auscultation: clear to auscultation bilaterally Cardio Jugular venous distension: no JVD Palpation: normal PMI Rate: regular rate Rhythm: abnormal rhythm with ectopic beats Heart sounds: S1 normal heart sound present and S2 normal heart sound present Bruits: no carotid bruits GI Auscultation: normal bowel sounds Skin General skin exam: no rashes or lesions noted Neuro General: patient oriented x3 and no focal motor deficits Extrem General: Yes edema (Left lower extremity) Psych Appearance: grossly normal Office Procedures EKG Details: EKG shows normal sinus rhythm with frequent PACs in bigeminal pattern [id number], Complete Assessment & Plan Assessment & Plan (1) Paroxysmal atrial fibrillation: Comment: Detected on ED presentation, 03/20/2024 Code(s): I48.0 - Paroxysmal atrial fibrillation Category: Medical Plan: Highly symptomatic paroxysmal atrial fibrillation leading to ED presentation. Since then she has had no obvious clinical recurrence. Advised to continue monitor clinical symptoms as well as EKG by her watch. Continue increased dose of metoprolol which she is tolerating well. Discussed about stress mitigation strategies. Discussed about avoidance of stimulants. If she has recurrent episodes of atrial fibrillation that requires again ED presentation may consider antiarrhythmic drug therapy with flecainide and/or ablation. She wants to defer ablation at this point time. Continue full oral anticoagulation, currently on Eliquis 5 mg b.i.d.. Semi annual renal function test should be pursued. Management was discussed in details. (2) CAD (coronary artery disease): Code(s): I25.10 - Atherosclerotic heart disease of [place] coronary artery without angina pectoris Category: Medical Plan: CAD which is nonobstructive. No symptoms related to it. Continue aggressive vascular risk factor modification. Continue aggressive blood pressure control, see below. Continue statin therapy with target goal LDL closer to 60 mg daily. Continue Eliquis therapy and avoid aspirin to reduce bleeding risk. Advised to maintain activity level as tolerated. (3) HTN (hypertension): Code(s): I10 - Essential (primary) hypertension Category: Medical Plan: Hypertension which is currently well optimized advised to monitor blood pressure at home maintain a log. Goal blood pressure less than 130/84. Low-salt diet was discussed. Stress mitigation strategies were discussed. Will follow up in clinic in 6 months time, sooner p.r.n.. Thank you for allowing me to partake in her care Coding Level of Care Code Est Pt Level 4 (75029) Complex EM visit Add On G2211 Diagnoses Paroxysmal atrial fibrillation I48.0 CAD (coronary artery disease) I25.10 HTN (hypertension) I10 CPT Codes EKG - CPT: 95625-[id number], Complete ([id number])
== END 2024-05-15 11:46 | disposition home or self-care (01) ==
PROVIDERS: PCP Internal Medicine; Visit Provider Internal Medicine Cardiovascular Disease
DX: I48.0 Paroxysmal atrial fibrillation (principal); I25.10 Atherosclerotic heart disease of native coronary artery without angina pectoris; I10 Essential (primary) hypertension
CPT/HCPCS: 93010; 99214; G2211

== ENCOUNTER → 2024-05-15 11:05 | Outpatient (BNVA) | payer MEDICARE, SELFPAY | PROVIDERS: PCP Internal Medicine; Visit Provider Internal Medicine Cardiovascular Disease | DX: I48.0 Paroxysmal atrial fibrillation (principal); I25.10 Atherosclerotic heart disease of native coronary artery without angina pectoris; I10 Essential (primary) hypertension | CPT/HCPCS: 93005; 99212 ==

== ENCOUNTER 2024-11-20 14:30 | Outpatient (AMB) | payer MEDICARE, SELFPAY ==
--- NOTE | 2024-11-20 14:33 | A.OFFVIS_ITS ---
Vital Signs 11/20/24 14:34 Height 5 ft 2 in Weight 167 lb 8.821 oz BMI 30.6 BP 134/64 Blood Pressure Location Lt brachial Position Sitting Pulse 74 Intake Visit Reasons: 6 mth f/up Intake Note: 6 month follow-up feeling good Strategic Marketing Specialist Required: No Fudge Candy Maker: Fudge Candy Maker Present Accompanied by: Spouse Allergies No Known Allergies Allergy (Verified 03/20/24 12:53) HPI Comments Details: Desiree comes for follow-up. She has no cardiac symptoms. She denies any prolonged palpitation irregular heartbeat. Takes all her medications. No bleeding issues or neurologic events. Denies any exertional chest pain or shortness of breath. No orthopnea, PND, leg edema. Does walk regularly but does not do more intense exercise. No lightheadedness, syncope. [facility] Medical History CAD (coronary artery disease) Hyperlipemia PAC (premature atrial contraction) SVT (supraventricular tachycardia) HTN (hypertension) Surgical History No pertinent past surgical history Family History Father CVD (cardiovascular disease) Mother No problems noted. Social History Alcohol intake: current Alcohol intake frequency: 0-2 drinks per day Alcohol type: wine Patient Tobacco Use Status: Never used Tobacco Review of Systems Const Denies chills, Denies fatigue, Denies fever(s), Denies frequent falls, Denies weakness, Denies weight gain and Denies weight loss ENT Denies dizziness Card Denies chest pain, Denies leg edema, Denies lightheadedness, Denies palpitations, Denies dyspnea, Denies dyspnea on exertion, Denies orthopnea and Denies other (loss of consciousness) Resp Denies cough, Denies dyspnea and Denies dyspnea on exertion GI Denies hematochezia and Denies change in stool character Musc Denies abnormal gait, Denies muscle weakness, Denies numbness, Denies radiating pain into limb and Denies tingling Neuro Denies abnormal gait, Denies dizziness, Denies frequent falls, Denies numbness, Denies tingling and Denies weakness Endo Denies fatigue and Denies palpitations Physical Exam Vital Signs: Last Vital Signs Pulse 74 11/20/24 14:34 BP 134/64 11/20/24 14:34 BMI result Body Mass Index 30.6 Const General: cooperative, comfortable, no acute distress, alert, awake and well groomed Nutritional Appearance: average body habitus Orientation/consciousness: patient oriented x3 Limitations: no limitations HEENT Head: Yes normocephalic and Yes atraumatic Neck Neck: Yes trachea midline, Yes supple and Yes no JVD Chest Chest palpation & inspection: normal inspection of the chest Resp Effort & Inspection: normal respiratory effort Auscultation: clear to auscultation bilaterally Cardio Jugular venous distension: no JVD Palpation: normal PMI Rate: regular rate Rhythm: abnormal rhythm with ectopic beats Heart sounds: S1 normal heart sound present and S2 normal heart sound present Bruits: no carotid bruits GI Auscultation: normal bowel sounds Skin General skin exam: no rashes or lesions noted Neuro General: patient oriented x3 and no focal motor deficits Extrem General: Yes edema (Left lower extremity) Psych Appearance: grossly normal Office Procedures EKG Details: EKG shows normal sinus rhythm with frequent PACs in bigeminal pattern otherwise normal EKG [id number], Complete Assessment & Plan Assessment & Plan (1) Paroxysmal atrial fibrillation: Comment: Detected on ED presentation, 03/20/2024 Code(s): I48.0 - Paroxysmal atrial fibrillation Category: Medical Plan: Highly symptomatic paroxysmal atrial fibrillation without any obvious recurrence at this point time. She has no symptoms related to it. She does have frequent PACs on EKG today. She is at high likelihood of recurrence. Although she has done well with metoprolol therapy and will continue the same. Avoidance of stimulants was discussed encouraged to maintain activity level as tolerated. Continue full oral anticoagulation, currently on Eliquis 5 mg b.i.d.. Semi annual renal function test should be pursued. (2) CAD (coronary artery disease): Code(s): I25.10 - Atherosclerotic heart disease of [place] coronary artery without angina pectoris Category: Medical Plan: Nonobstructive CAD without any symptoms. Continue aggressive risk factor modification. Continue current dual therapy with rosuvastatin and ezetimibe wit h target goal LDL less than 70 mg/dL. Blood pressure is currently well optimized encouraged to maintain activity level as tolerated. Advised to call me with any anginal symptoms. Avoid aspirin therapy given that she is on full oral anticoagulation therapy. Will follow up in the clinic in 6 months time, sooner p.r.n.. Thank you for allowing me to partake in her care Coding Level of Care Code Est Pt Level 4 (65200) Complex EM visit Add On G2211 Diagnoses Paroxysmal atrial fibrillation I48.0 CAD (coronary artery disease) I25.10 CPT Codes EKG - CPT: 67961-[id number], Complete ([id number])
[2024-11-20 14:34] VITALS: BP 134/64; PULSE 74; BMI 30.6
== END 2024-11-20 15:15 | disposition home or self-care (01) ==
LOC: HO.HCS 14:31
PROVIDERS: PCP Internal Medicine; Visit Provider Internal Medicine Cardiovascular Disease
DX: I48.0 Paroxysmal atrial fibrillation (principal); I25.10 Atherosclerotic heart disease of native coronary artery without angina pectoris
CPT/HCPCS: 93010; 99214; G2211

== ENCOUNTER → 2024-11-20 14:30 | Outpatient (BNVA) | payer MEDICARE, SELFPAY | PROVIDERS: PCP Internal Medicine; Visit Provider Internal Medicine Cardiovascular Disease | DX: I48.0 Paroxysmal atrial fibrillation (principal); I25.10 Atherosclerotic heart disease of native coronary artery without angina pectoris | CPT/HCPCS: 93005; 99212 ==

== ENCOUNTER 2025-03-25 08:17 | Outpatient (AMB) | payer MEDICARE, SELFPAY ==
--- NOTE | 2025-03-25 08:19 | MHC.OFFVIS ---
Vital Signs 03/25/25 08:20 Height 5 ft 2 in Weight 154 lb 5.177 oz BMI 28.2 BP 140/82 H Blood Pressure Location Lt brachial Position Sitting Pulse 74 Pulse Source Monitor Intake Visit Reasons: f/u regarding chest tightness that comes and goes Dentist/Owner Required: No Allergies No Known Allergies Allergy (Verified 03/25/25 08:23) Medication List - Last Reconciled 03/25/25 by Miladys Balderrama NP-C apixaban (Eliquis) 5 mg PO BID ezetimibe (Zetia) 10 mg PO DAILY levothyroxine 75 mcg PO DAILY lisinopril 20 mg PO DAILY metoprolol succinate ER 50 mg PO DAILY rosuvastatin 20 mg PO DAILY HPI HPI f/u regarding chest tightness that comes and goes: Details: Desiree is a 79 year old female with past medical history of hypertension, hyperlipidemia, SVT, PAF, nonobstructive CAD who presents with report of intermittent chest tightness. Today she reports that for the last few months she has been having intermittent tightness in her left chest region that will come and go without pattern. She says the episodes come on quickly and last a few sec before resolving. She may have a residual ache in that area afterwards. She is busy throughout each day and does water exercises which do not bring on chest discomfort. She has no shortness of breath, PND, orthopnea or edema. No heart palpitations, lightheadedness, presyncope, syncope. She wears a smart watch and she has had a few episodes where it says atrial fibrillation. She showed me the strips and some are indeed AF. The burden is listed as 3% in the last month. Some strips are inconclusive and appear to be sinus rhythm with PACs. She reports compliance with her medication. No bleeding issues reported with Eliquis use. [facility] Medical History CAD (coronary artery disease) Hyperlipemia PAC (premature atrial contraction) SVT (supraventricular tachycardia) HTN (hypertension) Surgical History No pertinent past surgical history Family History Father CVD (cardiovascular disease) Mother No problems noted. Social History Alcohol intake: current Alcohol intake frequency: 0-2 drinks per day Alcohol type: wine Patient Tobacco Use Status: Never used Tobacco Review of Systems Const All systems reviewed & are unremarkable except as noted in HPI and below ENT Denies dizziness Card Reports chest pain (random chest tightness), Denies chest pain at rest, Denies chest pain with activity, Denies rapid heart rate, Denies pedal edema, Denies edema, Denies leg edema, Denies lightheadedness, Denies palpitations, Denies dyspnea, Denies dyspnea on exertion and Denies orthopnea Resp Denies cough, Denies dyspnea and Denies dyspnea on exertion GI Denies hematochezia and Denies change in stool character Musc Denies abnormal gait, Denies limited range of motion, Denies muscle cramps, Denies muscle weakness, Denies numbness, Denies radiating pain into limb, Denies stiffness and Denies tingling Neuro Denies abnormal gait, Denies dizziness, Denies numbness and Denies tingling Endo Denies palpitations Physical Exam Vital Signs: BMI result Body Mass Index 28.2 Const General: cooperative, healthy appearing, comfortable and no acute distress Orientation/consciousness: patient oriented x3 Neck Neck: Yes normal visual inspection Resp Effort & Inspection: normal respiratory effort Auscultation: clear to auscultation bilaterally, no crackles, no rales, no rhonchi and no wheezes Cardio Rate: regular rate Rhythm: regular rhythm Heart sounds: S1 normal heart sound present, S2 normal heart sound present, no gallops, no murmurs and no rubs Neuro General: patient oriented x3 Extrem General: Yes normal to inspection, No no pedal edema and No calf tenderness Psych Appearance: grossly normal Mental Status: mental status grossly normal Speech and movement: Normal speech and movement present Office Procedures EKG Details: Today, read by me, sinus rhythm with atrial bigeminy, freq PACs, rate 74, Qtc 439ms [id number], Complete Assessment & Plan Assessment & Plan (1) Chest tightness: Code(s): R07.89 - Other chest pain Category: Medical Plan: Atypical chest discomfort, nonexertional, causing her much concern. EKG today sinus rhythm with frequent PACs and atrial bigeminy pattern, rate 74, no acute ST or T-wave abnormalities. She is known to have nonobstructive coronary artery disease based on coronary calcium score 31, in the RCA, 08/07/2020. Nuclear stress test done 06/22/2022 showed normal myocardial perfusion imaging. Last echo 04/09/2024 showed EF 65-70%, impaired relaxation, no valve abnormalities. She does have cardiac risk factors of age, hypertension, hyperlipidemia and has known CAD. Will order an exercise nuclear stress test for further evaluation. She is hoping to avoid Lexiscan use and says she can walk on the treadmill. Signs and symptoms of angina reviewed with her. Emergency care if ever needed for symptoms. She has follow-up with Dr. Messina in May. (2) CAD (coronary artery disease): Code(s): I25.10 - Atherosclerotic heart disease of [place] coronary artery without angina pectoris Category: Medical Plan: History of nonobstructive coronary artery disease. Cardiac testing as above. She is not on aspirin since she is on Eliquis. She is on rosuvastatin and Zetia with ideal LDL goal less than 70. She is on metoprolol. (3) Paroxysmal atrial fibrillation: Comment: Detected on ED presentation, 03/20/2024 Code(s): I48.0 - Paroxysmal atrial fibrillation Category: Medical Plan: History of paroxysmal atrial fibrillation. Last Holter monitor 03/27/2024 for 7 days shows sinus rhythm with average heart rate 60 beats per minute, frequent PACs 17.8%, frequent sinus bradycardia 46.5% less than 60. EKG today showing sinus rhythm with atrial bigeminy, frequent PACs, rate 74. She does not feel heart palpitations. She does record episodes on her smart watch that do state atrial fibrillation. I reviewed those strips and some are indeed AFib and others are sinus with PACs. Overall AFib burden listed as 3% in the last month however likely lower as her atrial arrhythmias are being called AFib. I considered increasing her metoprolol however unable due to low heart rates seen on Holter monitor. Instructed to keep track of frequency and discuss with Dr. Messina next visit. (4) PAC (premature atrial contraction): Code(s): I49.1 - Atrial premature depolarization Category: Medical Plan: As above (5) HTN (hypertension): Code(s): I10 - Essential (primary) hypertension Category: Medical Plan: Blood pressure goal less than 130/80. Mild elevation today. Reviewed low-salt diet, no med changes made. (6) Hyperlipemia: Code(s): E78.5 - Hyperlipidemia, unspecified Category: Medical Plan: Labs are followed by PCP. Most recent lipid profile in our system, 07/26/2023 LDL 60. Followed by PCP. Continue rosuvastatin and Zetia. Plan Time spent on chart review, documentation, interview and assessment Orders: Orders CA stress test Today I25.10 - Atherosclerotic heart disease of [place] coronary artery without angina pectoris, I49.1 - Atrial premature depolarization, R07.89 - Other chest pain NM cardiolite stress test Today I25.10 - Atherosclerotic heart disease of [place] coronary artery without angina pectoris, I48.0 - Paroxysmal atrial fibrillation, R07.89 - Other chest pain Medications: New metoprolol succinate ER Correction - No change in dose will be made. Cx script for 75mg 50 mg PO DAILY 90 tabs 3RF Coding Level of Care Code Est Pt Level 4 (44415) Complex EM visit Add On G2211 Diagnoses Chest tightness R07.89 CAD (coronary artery disease) I25.10 Paroxysmal atrial fibrillation I48.0 PAC (premature atrial contraction) I49.1 HTN (hypertension) I10 Hyperlipemia E78.5 CPT Codes EKG - CPT: [id number], Complete ([id number]) Time Spent (min) 28
[2025-03-25 08:20] VITALS: BP 140/82; PULSE 74; BMI 28.2
== END 2025-03-25 09:04 | disposition home or self-care (01) ==
LOC: HO.HCS 08:17
PROVIDERS: PCP Internal Medicine; Visit Provider Nurse Practitioner Family
DX: R07.89 Other chest pain (principal); I25.10 Atherosclerotic heart disease of native coronary artery without angina pectoris; I48.0 Paroxysmal atrial fibrillation; I49.1 Atrial premature depolarization; I10 Essential (primary) hypertension; E78.5 Hyperlipidemia, unspecified
CPT/HCPCS: 93010; 99214; G2211

== ENCOUNTER → 2025-03-25 08:17 | Outpatient (BNVA) | payer MEDICARE, SELFPAY | PROVIDERS: PCP Internal Medicine; Visit Provider Nurse Practitioner Family | DX: I10 Essential (primary) hypertension (principal); E78.5 Hyperlipidemia, unspecified; I49.1 Atrial premature depolarization; I48.0 Paroxysmal atrial fibrillation; I25.10 Atherosclerotic heart disease of native coronary artery without angina pectoris; R07.89 Other chest pain | CPT/HCPCS: 93005; 99212 ==

== ENCOUNTER → 2025-05-03 09:14 | Outpatient (REF) | payer MEDICARE, SELFPAY ==
--- NOTE | ~2025-05-03 | NM_ITS ---
EXERCISE MYOCARDIAL PERFUSION STUDY INDICATION: Atherosclerotic coronary artery disease to evaluate for myocardial ischemia TECHNIQUE: The patient was brought in for an exercise perfusion study on 05/03/2025. Patient performed exercise as per Ricardo protocol and was injected 25 mCi of sestamibi once target heart rate was achieved. Images were obtained using the SPECT gamma camera interlaced with the gating device. Images were obtained in supine position. Resting perfusion study was performed on 05/06/2025. Patient was administered 25 mCi of sestamibi intravenously at rest. Images were then obtained in supine position. Images obtained without without CT attenuation. Total DLP 128 mGy-cm. Images were processed with the software and compared side to side in short axis, horizontal long axis and vertical long axis views. FINDINGS: Raw images were reviewed The stress perfusion study showed nonattenuated images show minimally reduced uptake in the distal lateral wall of the LV myocardium. Remainder of the LV myocardium is normally perfused. Attenuated corrected images show some thinning of the distal anterior wall of the LV myocardium.. The gated study shows normal LV systolic function with calculated LVEF of 74%. LV cavity is normal in size. The gated study shows normal systolic wall thickening and contraction of segments. Resting study shows no change in perfusion pattern compared to stress perfusion study. Gating at rest was not performed. The findings are consistent with normal myocardial perfusion. NM/NM cardiolite stress test IMPRESSION: 1. Myocardial perfusion imaging study shows normal myocardial perfusion. 2. Gated LVEF is 74%. 3. Transient ischemic dilatation not present. EKG revealed negative for ischemia. Electronically signed by: Viktor Messina MD 05/07/2025 12:22 PM [facility]
--- NOTE | 2025-05-03 09:16 | CA_ITS ---
Acquisition Time: 2025-05-03 09:32:36 Total Exercise Time: 00:05:00 Test Indications: Abnormal ECG CP Medications: ELIQUIS EZETIMIBE LEVOTHYROXINE LISINOPRIL METOPROLOL ROSUVASTATIN Protocol: BALWINDER Max HR: 148 BPM 104% of Pred: 141 BPM Max BP: 138/82 mmHG Max Work Load: 4.6 METS Exercise stress test with exercise 5 mins of Balwinder Protocol held at Stage 1, achieving 104% MPHR, with reports of SOB, no chest pain, with isolated PVCs and frequent PACs, breif atrial runs- max 5 beats, with normotensive response to exercise. Without any EKG changes meeting criteria for ischemia. In recovery, breathing returned to baseline. Nuclear images pending. Test reviewed with Dr. Head. Referred By: Miladys Balderrama Electronically Signed By: Aayush Cobb
--- OUTSIDE RECORDS SUMMARY | 2025-05-03 10:09 | XMS_ITS | Clinical Summary ---
Author Organization [facility] Address [address] [place] [address] Phone Care Team Providers Care Foreign Correspondent Name Role Phone Abhijeet Simon MD Primary Care Provider [phone] Allergies No known active allergies Medications rosuvastatin (CRESTOR) 20 MG tablet Take 20 mg by mouth daily. 07/08/2022 Active pantoprazole (PROTONIX) 20 MG tablet Take 20 mg by mouth daily. 10/25/2023 Active metoprolol succinate (TOPROL-XL) 25 MG 24 hr tablet Take 25 mg by mouth daily. 07/17/2022 Active lisinopril (PRINIVIL,ZESTR IL) 20 MG tablet Take 20 mg by mouth daily. 07/17/2022 Active ezetimibe (ZETIA) 10 mg tablet Take 10 mg by mouth. 07/08/2022 Active celecoxib (CELEBREX) 200 MG capsule TAKE 1 CAPSULE BY MOUTH EVERY DAY DIRECTED, START 3 DAYS BEFORE SURGERY 07/08/2022 Active aspirin 325 MG EC tablet Take 1 tablet by mouth 2 (two) times a day. Active amoxicillin (AMOXIL) 500 MG capsule Take 2,000 mg by mouth daily. Active acetaminophen (TYLENOL) 650 MG CR tablet Take 650 mg by mouth 3 (three) times a day. 07/08/2022 Active metoprolol succinate (TOPROL-XL) 50 MG 24 hr tablet Take 1 tablet by mouth every morning. 10/23/2024 Active ELIQUIS 5 mg tablet Take 5 mg by mouth 2 (two) times a day. 09/22/2024 Active levothyroxine (SYNTHROID, LEVOTHROID) 75 MCG tablet Take 1 tablet (75 mcg total) by mouth every morning. 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 She is clinically and biochemically euthyroid on 75 mcg levothyroxine daily. Last TSH 1.39 in 10/2024. We reviewed basic thyroid physiology, meaning of TFTs, appropriate administration of levothyroxine, symptoms of under and over replacement. We also reviewed autoimmune nature of Marino's thyroiditis. 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 She is clinically and biochemically euthyroid on 75 mcg levothyroxine daily. Last TSH was 2.46 on 07/26/2023. We reviewed basic thyroid physiology, meaning of TFTs, appropriate administration of levothyroxine, symptoms of under and over replacement. Patient is scheduled to have a yearly physical with PCP in 02/2024. Asked to add TSH to next labs. Will communicate about labs through patient portal. Nontoxic multinodular goiter 11/28/2023 Assessment & Plan (11/05/2024 10:01 PM EDT): History of incidentally found thyroid nodules on carotid ultrasound about 12 years ago. Last ultrasound on 12/23/2023 [facility] reported stable right nodules measuring 1.5 cm, 1.7 cm and 1.8 cm, all TR 3. No left-sided or isthmus nodules. Patient had FNA of all 3 right-sided nodules in 07/2014, the right upper and right lower had benign cytology, the right mid had no follicular cells and was thought to be a hemorrhagic cyst. Patient denies any compression symptoms in the thyroid bed. -Will repeat thyroid ultrasound in 2 to 3 years as clinically indicated -Patient to call if any concerning compression symptoms in the thyroid bed Assessment & Plan (11/28/2023 8:59 PM EDT): History of incidentally found thyroid nodules on carotid ultrasound about 10 years ago. Last ultrasound on 11/02/2021 at [facility] reported stable right nodules measuring 1.5 cm, 1.9 cm and 2.1 cm, all TR 3. No mention of left-sided or isthmus nodules. Previous ultrasound from 11/15/2018 mentioned that patient had benign FNA of multiple bilateral nodules on 07/10/2014. Cytology reports are not available. Patient denies any compression symptoms in the thyroid bed. Plan to repeat ultrasound at [facility]. Will communicate about results through patient portal Social History Tobacco Use Types Packs/Day Years Used Date Smoking Tobacco: Never Smokeless Tobacco: Never Tobacco Cessation:Counseling Given: Not Answered Alcohol Use Standard Drinks/Week Comments Not Currently 5 (1 standard drink = 0.6 oz pur e alcohol) Education Answer Date Recorded Are you interested in more education? Not on paul e 10/30/2022 Are you concerned about learning? Not on file 10/30/2022 No 10/30/2022 No 10/30/2022 Digital Access Answer Date Recorded No 11/30/2022 No 11/30/2022 Reliable internet access at home? Not on file 11/30/2022 Device with a working camera? Not on file Comments Unknown Sex and Gender Information Value Date Recorded Sex Assigned at Not on file Legal Sex Female 2:51 PM EDT Gender Identity Not on file Sexual Orientation Not on file Last Filed Vital Signs Vital Sign Reading Time Taken Comments Blood Pressure 122/68 11/05/2024 1:11 PM EDT Pulse 75 11/05/2024 1:11 PM EDT Temperature - - Respiratory Rate - - Oxygen Saturation 98% 11/05/2024 1:11 PM EDT Inhaled Oxygen Concentration - - Weight 78 kg (172 lb) 11/05/2024 1:11 PM EDT Height 158.5 cm (5' 2.4 ) 11/21/2023 1:26 PM EDT Body Mass Index 31.06 11/21/2023 1:26 PM EDT Plan of Treatment Upcoming Encounters Date Type Department Care Team (Late st Contact Info) Description 11/05/2025 1:00 PM EDT Office Visit [facility] [address] [place] [address] [place] [address] Mia Mendez MD [address] [place] [phone] [email or web address] Health Maintenance Due Date Last Done Comments Adult Td,Tdap Booster 1945 CREATININE LEVEL 1945 LIPID PANEL 1945 POTASSIUM LEVEL 1945 DEPRESSION SCREENING 1957 HEPATITIS C SCREENING 12/25/1963 PNEUMOCOCCAL VACCINES (50+ y ears) (1 of 1 - PCV) 12/25/1995 ZOSTER VACCINES (1 of 2) 12/25/1995 OSTEOPOROSIS SCREENING INITI AL (ONE-TIME) 2010 RSV VACCINE (1 - 1-dose 75+ series) 2020 INFLUENZA VACCINE (#1) 2025 04/10/2018 COVID-19 VACCINE ( - 2024-2 6 season) 2025 TSH LEVEL 10/27/2025 10/27/2024 SMOKING STATUS SCREENING (On ce After 26 Yrs) Completed 11/21/2023 HEPATITIS A VACCINES Aged Out No long er eligible based on patient's age to complete this topic HIB VACCINES Aged Out No longer eligi ble based on patient's age to complete this topic MENINGOCOCCAL VACCINES (ACWY) Aged Out No longer eligible based on patient's age to complete this topic MENINGOCOCCAL VACCINES (B) Aged Out N o longer eligible based on patient's age to complete this topic Medical Devices Not on file Procedures Procedure Name Priority Date/Time Associated Diagnosis Comments TSH WITH REFLEX Routine 10/27/2024 2:47 PM EDT 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 from Last 3 Months or Most Recently Relevant to Health Maintenance Results * TSH with reflex (10/27/2024 2:47 PM EDT) Blood us Mia Mendez MD LAB BLOOD ORDERABLES Final Res ult [address] [address] from Last 3 Months or Most Recently Relevant to Health Maintenance Insurance [employer] H[employer] REPLACEMENT [employer] [place]PLACEMENT [employer] REPLACEMENT [employer] HMO REPLACEMENT [address] [address] [address] MEDICARE HMO REPLACEMENT [employer] HMO REPLACEMENT [address] [address] MEDICARE HMO REPLACEMENT [facility] MEDICARE HMO REPLACEMENT [address] [address] MEDICARE HMO REPLACEMENT Care Teams Foreign Correspondent Relationship Specialty Start Date End Date Abhijeet Simon MD [address] [place] [address] PCP - General Internal Medicine 07/26/22 Additional Source Comments The information contained in this document represents components of the legal health record. It is not the complete legal health record.[facility]
== END ==
LOC: HO.CARD 09:14
PROVIDERS: Visit Provider Nurse Practitioner Family
DX: I25.10 Atherosclerotic heart disease of native coronary artery without angina pectoris (principal); R07.89 Other chest pain; I49.1 Atrial premature depolarization; I48.0 Paroxysmal atrial fibrillation
CPT/HCPCS: 78452; 93017; A9500

== ENCOUNTER → 2025-05-03 09:16 | Outpatient (BNV) | payer MEDICARE, SELFPAY | DX: I25.10 Atherosclerotic heart disease of native coronary artery without angina pectoris (principal) | CPT/HCPCS: 78452; 93016; 93018 ==